=== PATIENT | female | born 1945 | race Caucasian/White ===

== ENCOUNTER 2019-02-23 17:45 | Emergency (ER) | payer MEDICARE ==
[2019-02-23] MEDS ORDERED: NS 0.9% 1000 ML** 1,000 ML IV ONE (18:15)
[2019-02-23] MEDS ORDERED: Ondansetron INJ* 2 MG/ML VIAL IV ONE (18:15)
[2019-02-23] MEDS ORDERED: Morphine 10 MG/ML VIAL (1 ml) IV ONE (18:15)
--- NOTE | 2019-02-23 20:35 | ED ---
Adult Trauma - HPI Summary HPI Summary: Patient complains of mechanical fall from third step of six-foot ladder 1 hour ago. Patient states she landed on her lower back and then sat back into the dryer, with subsequent bilateral lower back pain, bilateral hip pain. Patient has not been ambulatory since fall. Patient denies head injury, LOC, MAYA, vision change, altered mental status, N/V/D, neck pain, bilateral upper extremity pain, bilateral lower extremity pain, abdomen pain, chest wall pain, SOB. - History of Current Complaint Chief Complaint: EDFall Stated Complaint: BACK PAIN PER EMS Time Seen by Provider: 02/23/19 17:57 Hx Obtained From: Patient Mechanism of Injury: Fall Ambulatory at the Scene: No Loss of Consciousness: no loss of consciousness Onset/Duration: Started Minutes Ago Onset of Pain: Immediate Onset Severity: Severe Current Severity: Severe Pain Intensity: 8 Pain Scale Used: 0-10 Numeric Location: Back Character: Aching Aggravating Factor(s): Movement Alleviating Factor(s): Nothing Associated Signs & Symptoms: Positive: Negative - Allergy/Home Medications Allergies/Adverse Reactions: Allergies Allergy/AdvReac Type Severity Reaction Status Date / Time aspirin Allergy GI Upset Verified 02/23/19 17:53 erythromycin base Allergy Hives Verified 02/23/19 17:53 Home Medications: Home Medications Atorvastatin* [Lipitor*] 20 mg PO DAILY 02/23/19 [History Confirmed 02/23/19] Calcium Carbonate/Vitamin D3 [Calcium 600 + Vit D Tablet] 1 tab PO BID 02/23/19 [History Confirmed 02/23/19] Chlorthalidone TAB* [Hygroton TAB*] 25 mg PO DAILY 02/23/19 [History Confirmed 02/23/19] Citalopram TAB* [CeleXA TAB*] 20 mg PO DAILY 02/23/19 [History Confirmed ] Ibuprofen TAB* [Advil TAB*] 400 mg PO Q6H PRN 02/23/19 [History Confirmed ] Magnesium Plus 1 pkt PO BEDTIME 02/23/19 [History Confirmed 02/23/19] Multivitamins/Minerals TAB* [Theragran/minerals TAB*] 1 tab PO DAILY 02/23/19 [ History Confirmed 02/23/19] [place]-3S/Dha/Epa/Fish Oil/D3 [[place]-3 + D 500-200 mg-Unit] 1 cap PO DAILY [History Confirmed 02/23/19] Turmeric 400 mg PO DAILY 02/23/19 [History Confirmed 02/23/19] PMH/Surg Hx/FS Hx/Imm Hx Endocrine/Hematology History: Denies: Hx Anticoagulant Therapy Cardiovascular History: Reports: Hx Hypertension History: Denies: Hx Dialysis Sensory History: Denies: Hx Eye Prosthesis Opthamlomology History: Denies: Hx Legally Blind EENT History: Denies: Hx Deafness Neurological History: Denies: Hx Dementia Psychiatric History: Denies: Hx Autism - Cancer History Hx Chemotherapy: No Hx Radiation Therapy: No - Surgical History Surgery Procedure, Year, and Place: TONSILECTOMY. HYSTERECTOMY. CATARACT Infectious Disease History: No Infectious Disease History: Reports: Hx Shingles Denies: History Other Infectious Disease, Traveled Outside the [place] in Last 30 Days - Social History Alcohol Use: None Substance Use Type: Reports: None Smoking Status (MU): Never Smoked Tobacco Have You Smoked in the Last Year: No Review of Systems Constitutional: Negative Eyes: Negative ENT: Negative Cardiovascular: Negative Respiratory: Negative Gastrointestinal: Negative Genitourinary: Negative Musculoskeletal: Other Skin: Negative Neurological: Negative Psychological: Normal All Other Systems Reviewed And Are Negative: Yes Physical Exam - Summary Physical Exam Summary: No ecchymosis, erythema, deformity, swelling noted to bilateral hips, back or neck. Tenderness to palpation of lower lumbar spine bilaterally. No evidence of trauma to face, mouth, head. Neuro exam normal. Full range of motion of neck without indication of pain. Abdomen soft nontender. Lung sounds clear to auscultation bilaterally. No pain with palpation of chest wall. Patient able to flex and extend bilateral lower extremities at hip and knee joints and ankle joints without indication of pain. No pain with palpation of bilateral hips. Triage Information Reviewed: Yes Vital Signs On Initial Exam: Initial Vitals Temp Pulse Resp BP Pulse Ox 97.7 F 79 16 172/76 100 02/23/19 17:49 02/23/19 17:49 02/23/19 17:49 02/23/19 17:49 02/23/19 17:49 Vital Signs Reviewed: Yes Appearance: Positive: Well-Appearing Skin: Positive: Warm Head/Face: Positive: Normal Head/Face Inspection Eyes: Positive: Normal ENT: Positive: Normal ENT inspection Dental: Negative: Dental Fracture @ Neck: Positive: Supple Respiratory/Lung Sounds: Positive: Clear to Auscultation Cardiovascular: Positive: Normal Abdomen Description: Positive: Nontender Musculoskeletal: Positive: Normal Neurological: Positive: Normal Psychiatric: Positive: Normal AVPU Assessment: Alert - Dudley Coma Scale Best Eye Response: 4 - Spontaneous Best Motor Response: 6 - Obeys Commands Best Verbal Response: 5 - Oriented Coma Scale Total: 15 Diagnostics - Vital Signs Vital Signs Temp Pulse Resp BP Pulse Ox 02/23/19 19:00 73 99 02/23/19 18:59 18 02/23/19 18:21 72 152/69 97 02/23/19 18:00 71 100 02/23/19 17:50 81 172/76 99 02/23/19 17:49 97.7 F 79 16 172/76 100 - Laboratory Lab Statement: Any lab studies that have been ordered have been reviewed, and results considered in the medical decision making process. Adult Trauma Course/Dx - Course Course Of Treatment: Patient complains of mechanical fall from third step of six -foot ladder 1 hour ago. Patient states she landed on her lower back and then sat back into the dryer, with subsequent bilateral lower back pain, bilateral hip pain. Patient has not been ambulatory since fall. Patient denies head injury, LOC, MAYA, vision change, altered mental status, N/V/D, neck pain, bilateral upper extremity pain, bilateral lower extremity pain, abdomen pain, chest wall pain, SOB. Physical exam:No ecchymosis, erythema, deformity, swelling noted to bilateral hips, back or neck. Tenderness to palpation of lower lumbar spine bilaterally. No evidence of trauma to face, mouth, head. Neuro exam normal. Full range of motion of neck without indication of pain. Abdomen soft nontender. Lung sounds clear to auscultation bilaterally. No pain with palpation of chest wall. Patient able to flex and extend bilateral lower extremities at hip and knee joints and ankle joints without indication of pain. No pain with palpation of bilateral hips. Vital signs within normal limits. X-ray lumbar spine negative for acute process. X-ray of bilateral hips negative for acute process. Patient given morphine and Valium as muscle relaxer. Patient ambulated from the ED upon discharge. - Diagnoses Provider Diagnoses: Fall Discharge - Sign-Out/Discharge Documenting (check all that apply): Patient Departure Patient Received Moderate/Deep Sedation with Procedure: No - Discharge Plan Condition: Stable Disposition: HOME Prescriptions: Diazepam TAB(*) [Valium TAB(*)] 5 mg PO TID PRN 2 Days #6 tab MDD 3 tabs PRN Reason: Pain Oxycodone HCl 5 mg PO TID 3 Days #9 tablet MDD 3 -4 tabs Patient Education Materials: Musculoskeletal Pain (ED) Referrals: Rizwan Clark MD [Primary Care Provider] - Igor García MD [Medical Doctor] - Additional Instructions: You may alternate ibuprofen 600 mg of Tylenol 650 mg every 3 hours for pain. You may also use prescription pain medication for more severe pain. Take Valium as directed for muscle spasm. Do not take oxycodone and Valium at the same time. You may substitute or alternate, but do not take at the same time. If pain persists more than a week, follow-up with orthopedics Dr. García for further evaluation. Return to the ED for any new or worsening symptoms. - Billing Disposition and Condition Condition: STABLE Disposition: Home
[2019-02-23] MEDS ORDERED: Diazepam TAB(*) 5 MG PO ONE (20:46)
[2019-02-23 21:22] VITALS: BP 150/68
== END 2019-02-23 21:21 | disposition home or self-care (01) ==
LOC: ED 17:45
DX: M54.5 Low back pain (principal); W11.XXXA Fall on and from ladder, initial encounter; I10 Essential (primary) hypertension; Z88.6 Allergy status to analgesic agent; Z88.3 Allergy status to other anti-infective agents; Z79.899 Other long term (current) drug therapy
CPT/HCPCS: 72110; 73523; 96361; 96374; 96375; 99283; A9270-GY; J2270; J2405

== ENCOUNTER 2019-07-07 13:47 | Emergency (ER) | payer MEDICARE ==
[2019-07-07] MEDS ORDERED: Morphine 4 MG/ML VIAL (1 ml) 4 MG/ML VIAL IV ONE (14:56)
[2019-07-07 17:38] VITALS: BP 119/53
--- NOTE | 2019-07-08 05:31 | ED ---
Upper Extremity Pain - HPI Summary HPI Summary: This patient is a 73-year-old female presenting to the ED after a fall. Patient states she was gardening, fell backwards onto her hip. She does not recall landing on her wrist or catching herself with her arm, however she immediately felt pain to her wrist. She denies any pain to her right hip and was ambulatory immediately following. She was also endorsing some shoulder pain , which has not dissipated. She denies any other pain or injuries. She denies any numbness or tingling. Denies any color or temperature changes. She was given Toradol by way of EMS prior to arrival with some effect. - History of Current Complaint Chief Complaint: EDExtremityUpper Stated Complaint: LEFT WRIST FRACTURE PER EMS Time Seen by Provider: 07/07/19 14:00 Hx Obtained From: Patient Onset/Duration: Started Hours Ago Timing: Constant Severity Initially: Severe Severity Currently: Severe Pain Location: Arm, Wrist Character: Aching Aggravating Factor(s): Movement, Lifting, Flexion, Extension, Internal/External Rotation Alleviating Factor(s): Rest, Ice Associated Signs & Symptoms: Positive: Swelling. Negative: Redness, Bruising, Fever, Weakness, Numbness/Tingling - Risk Factors Non-Orthopedic Risk Factor: Negative DVT Risk Factors: Negative Septic Arthritis Risk Factor: Negative Compartment Syndrome Risk Factors: Pain - Allergies/Home Medications Allergies/Adverse Reactions: Allergies Allergy/AdvReac Type Severity Reaction Status Date / Time erythromycin base Allergy Rash Verified 07/07/19 13:53 aspirin AdvReac GI Upset Verified 07/07/19 13:53 Home Medications: Home Medications diPHENhydraMINE PO* [Benadryl PO 25 MG TAB*] 25 mg PO BEDTIME 07/07/19 [History Confirmed 07/07/19] PMH/Surg Hx/FS Hx/Imm Hx Previously Healthy: Yes Endocrine/Hematology History: Denies: Hx Anticoagulant Therapy Cardiovascular History: Reports: Hx Hypertension History: Denies: Hx Dialysis Sensory History: Denies: Hx Eye Prosthesis, Hx Legally Blind, Hx Deafness Opthamlomology History: Denies: Hx Eye Prosthesis, Hx Legally Blind Neurological History: Denies: Hx Dementia Psychiatric History: Denies: Hx Autism - Cancer History Hx Chemotherapy: No Hx Radiation Therapy: No - Surgical History Surgery Procedure, Year, and Place: TONSILECTOMY. HYSTERECTOMY. CATARACT - Immunization History Hx Pertussis Vaccination: No Immunizations Up to Date: Yes Infectious Disease History: No Infectious Disease History: Reports: Hx Shingles Denies: History Other Infectious Disease, Traveled Outside the [place] in Last 30 Days - Social History Occupation: Unemployed Lives: With Family Alcohol Use: None Hx Substance Use: No Substance Use Type: Reports: None Smoking Status (MU): Never Smoked Tobacco Have You Smoked in the Last Year: No Review of Systems Constitutional: Negative Negative: Fever, Chills, Fatigue, Skin Diaphoresis Negative: Palpitations, Chest Pain Negative: Shortness Of Breath, Cough Genitourinary: Negative Positive: no symptoms reported, see HPI Positive: Arthralgia - right wrist pain with deformity Positive: Other - swelling. Negative: Rash, Bruising Negative: Headache All Other Systems Reviewed And Are Negative: Yes Physical Exam Triage Information Reviewed: Yes Vital Signs On Initial Exam: Initial Vitals Pulse BP Pulse Ox 75 150/87 99 07/07/19 13:43 07/07/19 13:43 07/07/19 13:43 Vital Signs Reviewed: Yes Appearance: Positive: Well-Appearing, No Pain Distress, Well-Nourished Skin: Positive: Warm, Skin Color Reflects Adequate Perfusion Head/Face: Positive: Normal Head/Face Inspection Eyes: Positive: EOMI, CHUY, Conjunctiva Clear Neck: Positive: Supple, No Lymphadenopathy Respiratory/Lung Sounds: Positive: Clear to Auscultation, Breath Sounds Present Cardiovascular: Positive: RRR, Pulses are Symmetrical in both Upper and Lower Extremities Musculoskeletal: Positive: Pain @ - right wrist pain with deformity Neurological: Positive: Other - NV intact Psychiatric: Positive: Affect/Mood Appropriate Procedures - Splinting wrist Location: R wrist - plaster sugar tong with posterior long arm Hand-Made Type: plaster splint Splint: sugar-tong Pre-Proc Neuro Vasc Exam: normal Post-Proc Neuro Vasc Exam: normal Diagnostics - Vital Signs Vital Signs Temp Pulse Resp BP Pulse Ox 07/07/19 17:37 98.1 F 67 18 119/53 96 07/07/19 17:00 70 97 07/07/19 16:37 67 97 07/07/19 16:14 140/60 07/07/19 15:51 144/69 07/07/19 15:14 75 163/64 98 07/07/19 15:09 22 07/07/19 15:00 72 98 07/07/19 14:44 75 163/76 96 07/07/19 14:14 77 161/74 97 07/07/19 14:04 75 97 07/07/19 13:50 98.5 F 72 16 150/87 98 07/07/19 13:43 75 150/87 99 - Laboratory Lab Statement: Any lab studies that have been ordered have been reviewed, and results considered in the medical decision making process. - Radiology Wrist Radiology Interpretation Completed By: Radiologist - IMPRESSION: Comminuted fracture distal radius and overriding of the fracture fragments. - CT wrist CT Interpretation Completed By: Radiologist - REPORT AND IMPRESSION: #. Severely comminuted and impacted intra-articular fracture of the distal radius with significant resulting articular surface incongruity and discontinuity. Disproportionate dorsal impaction results in dorsal tilt of the distal radial articular surface. #. Associated grossly nondisplaced ulnar styloid avulsion fracture. #. The carpus is displaced dorsally with the distal radial articular surface. #. No evidence for scaphoid fracture or fracture of the remaining carpal bones. #. 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 #. Diffuse soft tissue edema without visualized loculated hematoma. Course/Dx - Course Course Of Treatment: This patient is evaluated for right wrist injury. She was also endorsing pain to the right hip and right shoulder however does not endorse any pain to these areas at this time. She is endorsing pain over the dorsum of the right wrist to the radial side. Denies any pain otherwise. She does endorse a radiation of pain to the right elbow, but denies any pain directly over the elbow. She denies any other injuries. X-ray was obtained - Diagnoses Differential Diagnosis/HQI/PQRI: Positive: Fracture (Closed), Strain, Sprain Provider Diagnoses: Displaced comminuted fracture of shaft of radius - Physician Notifications Discussed Care of Patient With: Igor Sanchez - recommended splint and CT with no attenpted reduction Instructed by Provider To: Have Pt Call For Appt. Discharge ED - Sign-Out/Discharge Documenting (check all that apply): Patient Departure Patient Received Moderate/Deep Sedation with Procedure: No - Discharge Plan Condition: Stable Disposition: HOME Prescriptions: RX: traMADol TAB* [Ultram*] 50 mg PO Q8H PRN #15 tab MDD 3 PRN Reason: Pain Patient Education Materials: Wrist Fracture in Adults (ED) Referrals: Rizwan Clark MD [Primary Care Provider] - Igor García MD [Medical Doctor] - Additional Instructions: Tramadol up to three times daily as needed for pain Keep in sling Follow up with orthopedics next week Do not get splint wet - Billing Disposition and Condition Condition: STABLE Disposition: Home
== END 2019-07-07 17:37 | disposition home or self-care (01) ==
LOC: ED 13:47
DX: S52.352A Displaced comminuted fracture of shaft of radius, left arm, initial encounter for closed fracture (principal); W19.XXXA Unspecified fall, initial encounter; Y93.H2 Activity, gardening and landscaping; Y92.9 Unspecified place or not applicable; I10 Essential (primary) hypertension; Z90.710 Acquired absence of both cervix and uterus; Z79.899 Other long term (current) drug therapy; Z88.6 Allergy status to analgesic agent; Z88.1 Allergy status to other antibiotic agents
CPT/HCPCS: 96374; 99283; J2270

== ENCOUNTER → 2019-07-12 13:53 | Day surgery (SDC) | payer MEDICARE ==
[~2019-07-12 13:53] MED LIST: Bupivacaine 0.25% SDV PF* 10 ML VIAL INJ ONE; Dexamethasone IV* 4 MG/ML 1 ML (4 MG) ONE; DiMENhydriNATE IV* 50 MG/ML VIAL IV PUSH PRN; DiMENhydriNATE IV* 50 MG/ML VIAL ONE; HYDROmorphone INJ1* 1 MG/ML SYRINGE ONE; Ketorolac INJ* 30 MG/ML 1 ML VIAL ONE; Lidocaine 2% PF * 5 ML VIAL ONE; Midazolam* 1 MG/ML 5 ML VIAL (5 MG) ONE; Naloxone* 0.4 MG/ML 1 ML VIAL IV PRN; Ondansetron INJ* 2 MG/ML VIAL ONE; Propofol* 10 MG/ML 20 ML BTL ONE; ceFAZolin 2 GM in NS PREMIX(*) 2 GM/100 ML BAG IVPB ONE; fentaNYL* 50 MCG/ML 2 ML VIAL (100 MCG VIAL) ONE; hydrALAZINE IV* 20 MG/ML VIAL IV SLOW PU ONE; hydrALAZINE IV* 20 MG/ML VIAL ONE; oxyCODONE/Acetamin 5/325 MG* TAB ONE
[2019-07-12] MEDS: HYDROmorphone INJ1* 1 MG/ML SYRINGE IV PRN ×5 (20:27→21:10)
[2019-07-12] MEDS: oxyCODONE/Acetamin 5/325 MG* TAB PO PRN ×2 (20:30→20:44)
[2019-07-12 22:54] VITALS: BP 114/51
--- NOTE | 2019-07-13 05:48 | OP ---
DATE OF OPERATION: 07/12/19 - [facility] DATE OF : 45 SURGEON: Igor García MD CARBON ACCOUNTANT: SONNY Pimentel. An specimen preparation assistant was needed for the procedure to aid in positioning of the arm and retraction. ANESTHESIOLOGIST: Dr. Liu. ANESTHESIA: General. PRE-OP DIAGNOSIS: Highly comminuted and extremely distal right intraarticular, multiple fragments, distal radius fracture. POST-OP DIAGNOSIS: Highly comminuted and extremely distal right intraarticular , multiple fragments, distal radius fracture. OPERTIVE PROCEDURE: Open reduction and internal fixation of the right intraarticular, multi-fragmentary distal radius fracture. INDICATIONS: Ms. Bonner has a very comminuted, very distal fracture. It is noted only a few millimeters of bone distal to work with. I told her the only way we could fix this is with a dorsal spanning plate. I really do not think using some sort of periarticular plate would add any benefit and we will likely get a better result with a dorsal spanning plate. We therefore planned on that. She understands the risks and benefits of the treatment and the need for the plate to come out in 3 months. She wants to proceed. ESTIMATED BLOOD LOSS: 2 mL. COMPLICATIONS: None. FINDINGS: See above and below. DESCRIPTION OF PROCEDURE: Ms. Bonner was seen in the preoperative holding area. The correct side, site, and procedure were identified. We came back to the operating room. The arm was prepped and draped in the usual fashion. A time- out was performed. The arm was placed in 10 pounds retraction using the Arthrex hand benson. The forearm was pronated and the mini C-arm was brought in. The reduction was confirmed. I then made an incision of the second metacarpal. I retracted the tendons ulnarly. Subperiosteal dissection was made. I passed a plate from distal to proximal. I did make a 2 to 3 cm incision right over the wrist to release the sheath around the EPL tendon and make sure the plate was passing deep to the tendon. I then went ahead and secured my plate distally with one 2.4 mm cortical screw. I left it just a little loose, so I could rotate the plate proximally. I then put the plate on bone proximally and secured it with one 2.4 mm cortical screw. At this point, I confirmed the reduction. It was excellent. I placed 3 more locking screws distally, 3 more locking screws proximally. Again, the plate position was confirmed that it was not overlying the EPL tendon. Everything was looking good. The wounds were all irrigated out. Skin was closed with 4-0 nylon suture. 0.25% plain Marcaine was infiltrated all about the operative area. The wounds were dressed with Xeroform , 4x4s, sterile Webril, and then a short arm wrist splint was applied and she was taken to the recovery room in stable condition. [id number]/[facility] #: [id number] [facility]ARE SYSTEMGautam
== END | disposition home or self-care (01) ==
LOC: OR 13:53
PROVIDERS: ATTEND Orthopaedic Surgery Hand Surgery
DX: S52.571A Other intraarticular fracture of lower end of right radius, initial encounter for closed fracture (principal); W19.XXXA Unspecified fall, initial encounter; Y92.009 Unspecified place in unspecified non-institutional (private) residence as the place of occurrence of the external cause; I10 Essential (primary) hypertension; E78.00 Pure hypercholesterolemia, unspecified; F41.9 Anxiety disorder, unspecified; M79.7 Fibromyalgia; E78.5 Hyperlipidemia, unspecified; M19.90 Unspecified osteoarthritis, unspecified site
CPT/HCPCS: A9270-GY; C1713; C1776; J0360; J0690; J1100; J1170; J1240; J1885; J2250; J2405; J2704; J3010; J3490

== ENCOUNTER 2019-07-22 10:18 | Day surgery (SDC) | payer MEDICARE ==
[2019-07-22] MEDS ORDERED: ceFAZolin 2 GM PREMIX in ORs 2 GM/50 ML BAG ONE (10:29)
[2019-07-22] MEDS ORDERED: Dexamethasone IV* 4 MG/ML 1 ML (4 MG) ONE (10:29)
[2019-07-22] MEDS ORDERED: Famotidine IV* 10 MG/ML 2 ML (20 mg) ONE (10:30)
[2019-07-22] MEDS ORDERED: Buffered Lidocaine 1% SYRIN* 1 ML/SYRINGE INTRADERM ONE (11:04)
[2019-07-22] MEDS ORDERED: fentaNYL* 50 MCG/ML 2 ML VIAL (100 MCG VIAL) ONE (11:59)
[2019-07-22] MEDS ORDERED: Midazolam* 1 MG/ML 2 ML VIAL (2 MG) ONE (11:59)
[2019-07-22] MEDS ORDERED: Propofol* 10 MG/ML 20 ML BTL ONE (11:59)
[2019-07-22] MEDS ORDERED: Lidocaine 2% PF * 5 ML VIAL ONE (11:59)
[2019-07-22] MEDS ORDERED: Bupivacaine 0.25% SDV* 30 ML ONE (12:10)
[2019-07-22] MEDS ORDERED: Ketorolac INJ* 30 MG/ML 1 ML VIAL IV PRN (12:13)
[2019-07-22] MEDS ORDERED: oxyCODONE TAB* 5 MG TAB PO PRN (12:13)
[2019-07-22] MEDS ORDERED: fentaNYL* 50 MCG/ML 2 ML VIAL (100 MCG VIAL) IV PRN (12:13)
[2019-07-22] MEDS ORDERED: DiMENhydriNATE IV* 50 MG/ML VIAL IV PUSH PRN (12:13)
[2019-07-22] MEDS ORDERED: Naloxone* 0.4 MG/ML 1 ML VIAL IV PRN (12:13)
[2019-07-22] MEDS ORDERED: Bupivacaine 0.25% SDV PF* 10 ML VIAL INJ ONE (12:54)
[2019-07-22 14:41] VITALS: BP 128/58
--- NOTE | 2019-07-22 22:14 | OP ---
DATE OF OPERATION: 07/22/19 - [facility] DATE OF : 45 SURGEON: Igor García MD. CARROT HARVESTER: SONNY Rosario. ANESTHESIOLOGIST: Dr. Joseph. ANESTHESIA: Local MAC. PRE-OP DIAGNOSIS: Right carpal tunnel syndrome. POST-OP DIAGNOSIS: Right carpal tunnel syndrome. OPERATIVE PROCEDURE: Right open carpal tunnel release. INDICATIONS: Tabitha had a dorsal spanning plate put on for a very severe and intraarticular distal radius fracture 2 weeks ago. She came back into the office yesterday and she says over the last couple of weeks, she has had really severe pain in the radial 3 digits and they were very numb. The symptoms were not abating at all. She said that they actually got a lot worse after the surgery and really had not been there that much before the surgery. I told her that she had this posttraumatic carpal tunnel syndrome, and given that her symptoms were quite severe with constant numbness in the fingers, I told her we have to do a carpal tunnel release to try to get that median nerve every chance to get better. She understands very much and wished to proceed. ESTIMATED BLOOD LOSS: 2 mL. COMPLICATIONS: None. FINDINGS: See above and below. DESCRIPTION OF PROCEDURE: Tabitha was seen in the preoperative holding area. The correct side, site, and procedure were identified. We came back to the operating room. I numbed up the operative site with 0.25% plain Marcaine. The arm was then prepped and draped in the usual fashion. I made a longitudinal incision in the proximal palm. Dissection was carried down through to the subcutaneous tissue and palmar fascia. The transverse carpal ligament was released just off the radial aspect of the hook of the hamate. The release was completed distally and proximally. I released the subcutaneous tissue and fascia and then placed a Pura retractor, and under direct visualization, I released the proximal transverse carpal ligament and distal antebrachial fascia until there was absolutely no compression on the nerve. Once I had done a full release, I freed up the nerve and I noted that right near the wrist flexion crease, there was an area where it seemed very indented, looked like it had been kinked by a band of fascia there, but at this point, that was relieved and the nerve was already assuming a more normal shape. Everything looked good at this point. I irrigated out the wound. The skin was closed with 4-0 nylon suture. During the prep with the Betadine prep, she had had a little opening up of a couple of the dorsal forearm wounds and so I just placed 1 nylon suture in each of those. The wounds were dressed with Xeroform, 4x4s, sterile Webril and then a volar wrist splint was applied. She was taken to the recovery room in stable condition. [id number]/[facility] #: [id number] BUTCH
--- NOTE | 2019-08-17 15:32 | HP ---
HISTORY AND PHYSICAL: DATE OF ADMISSION/SURGERY: 07/22/19 - [facility] [place] CHIEF COMPLAINT: Status post ORIF right distal radius on 07/12/19, with numbness and tingling in the radial 3 digits. HISTORY OF PRESENT ILLNESS: Tabitha is status post the aforementioned surgery. She has developed postsurgical carpal tunnel syndrome. It is not improving. Symptoms are severe. PAST MEDICAL HISTORY: Hypertension, hyperlipidemia, arthritis, anxiety, fibromyalgia. PAST SURGICAL HISTORY: ORIF of right distal radius, hysterectomy, tonsillectomy , 2 cataract surgeries. FAMILY HISTORY: Heart disease and arthritis. SOCIAL HISTORY: She lives with her spouse. She is a retired hairdresser. She uses tobacco. She consumes alcohol occasionally. MEDICATIONS: reviewed in the patients chart. ALLERGIES: Erythromycin base, aspirin REVIEW OF SYSTEMS: As above. PHYSICAL EXAMINATION GENERAL: Awake and alert, in no distress. LUNGS: Clear. CARDIAC: Regular. MUSCULOSKELETAL: She continues to have diminished light touch sensation in the radial 3 digits. Thenar muscles are firing, but are weak. No atrophy is seen. She is able to close the hand, but lacks about 1 cm in getting the hand fully closed and the fingertips down to the palm. SKIN: Intact. Wound is healing. IMPRESSION: 1. Right carpal tunnel syndrome that has really gotten severe after surgery on 07/22/19. 2. Status post distal spanning plate of the right distal radius fracture. PLAN: The numbness and tingling is constant, so I think we should release the carpal tunnel. I talked about what that means, the risks and benefits and the plan will be for right carpal tunnel release. [id number]/[facility] [place] #: [id number] BUTCH
== END 2019-07-22 14:26 | disposition home or self-care (01) ==
LOC: OREAST 10:18
PROVIDERS: ATTEND Orthopaedic Surgery Hand Surgery
DX: G56.01 Carpal tunnel syndrome, right upper limb (principal); I10 Essential (primary) hypertension; Z87.828 Personal history of other (healed) physical injury and trauma
CPT/HCPCS: J0690; J1100; J2250; J2704; J3010; J3490

== ENCOUNTER 2024-03-09 06:17 | Observation (INO) ==
[~2024-03-09 06:17] MED LIST changes: -Bupivacaine 0.25% SDV PF* 10 ML VIAL INJ ONE; -Dexamethasone IV* 4 MG/ML 1 ML (4 MG) ONE; -DiMENhydriNATE IV* 50 MG/ML VIAL IV PUSH PRN; -DiMENhydriNATE IV* 50 MG/ML VIAL ONE; -HYDROmorphone INJ1* 1 MG/ML SYRINGE ONE; -Ketorolac INJ* 30 MG/ML 1 ML VIAL ONE; -Lidocaine 2% PF * 5 ML VIAL ONE; +Metoclopramide 5 MG/ML VIAL (10 mg) IV PRN; -Midazolam* 1 MG/ML 5 ML VIAL (5 MG) ONE; +NS 0.45% 1000 ml BAG 1,000 ML IV SCH; +Naloxone 0.4 mg VIAL 0.4 mg/ml 1 ml VIAL IV PRN; -Naloxone* 0.4 MG/ML 1 ML VIAL IV PRN; +Ondansetron 4 mg VIAL 2 MG/ML 2 ml VIAL IV PRN; -Ondansetron INJ* 2 MG/ML VIAL ONE; -Propofol* 10 MG/ML 20 ML BTL ONE; -ceFAZolin 2 GM in NS PREMIX(*) 2 GM/100 ML BAG IVPB ONE; +fentaNYL 100 mcg/2 ml 50 MCG/ML VIAL IV PRN; -fentaNYL* 50 MCG/ML 2 ML VIAL (100 MCG VIAL) ONE; -hydrALAZINE IV* 20 MG/ML VIAL IV SLOW PU ONE; -hydrALAZINE IV* 20 MG/ML VIAL ONE; -oxyCODONE/Acetamin 5/325 MG* TAB ONE
[2024-03-09] MEDS ORDERED: Tranexamic Acid 1 GM/100ML BAG 2,000 MG/200 ML BAG IV ONE (06:47)
[2024-03-09] MEDS ORDERED: ceFAZolin 2 GM PREMIX 2 GM/50 ML BAG ONE (06:47)
[2024-03-09 07:08] LABS: Rapid COVID-19 Molecular Undetected (Undetected)
[2024-03-09] MEDS: Lactated Ringers 1000 ml BAG 1,000 ML IV SCH ×2 (07:29→16:18)
[2024-03-09] MEDS ORDERED: fentaNYL 100 mcg/2 ml 50 MCG/ML VIAL ONE ×2 (08:03→08:06)
[2024-03-09] MEDS ORDERED: Dexamethasone IV 4 MG/ML VIAL 1 ml VIAL ONE (08:03)
[2024-03-09] MEDS ORDERED: ROPIVACAINE 5 MG/ML 30 ML BTL (0.5%) ONE ×2 (08:03→08:36)
[2024-03-09] MEDS ORDERED: Propofol 10 MG/ML 20 ML BTL ONE (08:06)
[2024-03-09] MEDS ORDERED: Midazolam 2 mg/2 ml VIAL 1 mg/ml 2 ml VIAL (2 mg) ONE (08:06)
[2024-03-09] MEDS ORDERED: Lidocaine 2% PF 5 ML VIAL ONE (08:06)
[2024-03-09] MEDS ORDERED: Phenylephrine IV 10 MG/ML 1 ml VIAL ONE (10:14)
[2024-03-09] MEDS ORDERED: Ondansetron 4 mg VIAL 2 MG/ML 2 ml VIAL IV PRN (12:19)
[2024-03-09] MEDS ORDERED: Morphine 2 MG/ML SYRINGE IV PRN (12:19)
[2024-03-09] MEDS ORDERED: Calcium Carb (TUMS) 500 mg CHEW TAB PO PRN (12:19)
[2024-03-09] MEDS ORDERED: Magnesium Hydroxide LIQ 30 ML UDC PO PRN (12:19)
[2024-03-09] MEDS ORDERED: Lactulose 30 ml UDC PO PRN (12:19)
[2024-03-09] MEDS: Buffered Lidocaine 1% SYRIN 1 ml INTRADERM ONE (13:16)
[2024-03-09] MEDS: Acetaminophen IV 1 GM/100ML 1,000 MG/100 ML BAG IV ONE (13:16)
[2024-03-09] MEDS: Scopolamine 1 mg/72hr PATCH TRANSDERM ONE (13:17)
[2024-03-09] MEDS: Ondansetron ODT 4 mg TAB 4 MG TAB PO PRN (16:34)
[2024-03-09] MEDS: ceFAZolin 2 GM in NS PREMIX 2 GM/100 ML BAG IVPB SCH (18:34)
[2024-03-09] MEDS: Magnesium Hydroxide LIQ 30 ML UDC PO SCH (20:35)
[2024-03-10 05:38] LABS: Hematocrit 31.8 % (35-45); Hemoglobin 10.7 g/dL (11.5-14.3); Mean Platelet Volume 8.5 fL (7.5-11.2); Platelet Count 289 10^3/uL (150-450)
[2024-03-10 06:12] LABS: Calcium 9.2 mg/dL (8.6-10.3); Creatinine, Serum 0.78 mg/dL (0.51-0.95); Potassium 4.3 mmol/L (3.5-5.0); eGFR CKD-EPI 77.7 (>60)
[2024-03-10] MEDS: Vitamin THERAPEUTIC TAB PO SCH (07:33)
[2024-03-10 10:30] VITALS: BP 122/56
== END 2024-03-10 12:30 | disposition home or self-care (01) ==
LOC: OR 06:17 → SSU 06:17 → EDSTATUS 10:45
PROVIDERS: ADMIT Orthopaedic Surgery Adult Reconstructive Orthopaedic Surgery; ATTEND Orthopaedic Surgery Adult Reconstructive Orthopaedic Surgery